=== PATIENT | male | born 1970 | race Caucasian/White ===

== ENCOUNTER 2018-12-31 07:59 | Emergency (ER) | payer BC ==
[2018-12-31 08:37] LABS: ABSOLUTE BASOPHILS # (AUTO) 0.1 10^3/uL (0.0-0.2); ABSOLUTE EOSINOPHILS # (AUTO) 0.1 10^3/uL (0.0-0.6); ABSOLUTE LYMPHOCYTES (AUTO) 1.2 10^3/uL (0.5-4.7); ABSOLUTE MONOCYTES (AUTO) 1.1 10^3/uL (0.1-1.4); ABSOLUTE NEUT (AUTO) 8.8 10^3/uL (1.7-8.2); BASOPHILS % (AUTO) 0.5 % (0-2); EOSINOPHILS % (AUTO) 0.7 % (0-6); HEMATOCRIT 46.1 % (37.9-51.0); LYMPHOCYTES % (AUTO) 10.9 % (13-45); MEAN CORPUSCULAR HEMOGLOBIN 30.4 pg (27.0-33.4); MEAN CORPUSCULAR HGB CONC 34.7 g/dL (32.0-36.0); MEAN CORPUSCULAR VOLUME 88 fl (80-97); MONOCYTES % (AUTO) 9.9 % (3-13); PLATELET COUNT 202 10^3/uL (150-450); RED BLOOD COUNT 5.26 10^6/uL (4.35-5.55); RED CELL DISTRIBUTION WIDTH 13.1 % (11.5-14.0); TOTAL CELLS COUNTED % (AUTO) 100 %; WHITE BLOOD COUNT 11.3 10^3/uL (4.0-10.5)
--- NOTE | 2018-12-31 08:40 | ER Document Report ---
ED GI/ - General Chief Complaint: Abdominal Pain Stated Complaint: ABDOMINAL PAIN Time Seen by Provider: 12/31/18 08:28 Primary Care Provider: DILMA LAWRENCE MD [Primary Care Provider] - Follow up as needed Notes: 48-year-old male who presents today with the onset around 2 days ago of some left mid abdominal "sharp" intermittent pain. No radiation. No aggravating or relieving factors. No nausea, vomiting, dysuria, or diarrhea. Patient states he had a subjective fever yesterday. Patient denies any chest pain, shortness of breath, or leg swelling. TRAVEL OUTSIDE OF THE [place] IN LAST 30 DAYS: No - Related Data Allergies/Adverse Reactions: No Known Allergies Allergy (Verified 12/31/18 08:05) Past Medical History - Social History Smoking Status: Unknown if Ever Smoked Family History: Reviewed & Not Pertinent Review of Systems - Review of Systems Constitutional: denies: Fever EENT: denies: Eye discharge, Nose discharge Cardiovascular: denies: Chest pain, Palpitations Respiratory: denies: Short of breath Gastrointestinal: denies: Vomiting Genitourinary: denies: Dysuria Musculoskeletal: denies: Leg swelling Skin: denies: Rash -: Yes All other systems reviewed and negative Physical Exam - Vital signs Vitals: Temp Pulse Resp BP Pulse Ox 97.3 F 80 18 156/100 H 98 12/31/18 08:04 12/31/18 08:04 12/31/18 08:04 12/31/18 08:04 12/31/18 08:04 Notes: Reviewed vital signs and nursing note as charted by RN. CONSTITUTIONAL: Alert and oriented and responds appropriately to questions. Well-appearing; well-nourished HEAD: Normocephalic; atraumatic EYES: Sclerae non-icteric ENT: Normal nose; no rhinorrhea; moist mucous membranes; pharynx without lesions noted NECK: Supple without meningismus; non-tender; no cervical lymphadenopathy, no masses CARD: Irregularly irregular; no murmurs; symmetric distal pulses RESP: Normal chest excursion without splinting or tachypnea; breath sounds clear and equal bilaterally; no wheezes, no rhonchi, no rales ABD/GI: Normal bowel sounds; non-distended; soft, tender to palpation of the left lower quadrant with no abdominal bruits or palpable masses GI/: Patient has no inguinal masses, no obvious testicular pain or scrotal erythema BACK: The back appears normal and is non-tender to palpation EXT: Normal ROM in all joints; non-tender to palpation; no edema SKIN: No acute lesions noted NEURO: CN 2-12 intact; 5/5 bilateral upper and lower extremity strength with sensation intact to light touch PSYCH: The patient's mood and manner are appropriate. Grooming and personal hygiene are appropriate. Course - Re-evaluation Re-evalutation: 12/31/18 08:38 Given the history and physical examination, I will order basic labs, liver panel, lipase, urine analysis, CT scan of the abdomen and pelvis, and reassess. EKG shows a heart rate of 80, atrial fibrillation, no obvious ST elevation or depression. Patient denies a history of an irregular heartbeat. He denies any medical history and takes no medications. He denies any palpitations, chest pain, lightheadedness, or dizziness. Patient's mother is a surgical nurse here. The general surgeon Dr. Jensen is [place] assessed the patient's abdomen and does not believe that the patient has an acute abdominal emergency at this time. He will allow us to proceed with CT scan which I believe is very reasonable. Given the new onset atrial fibrillation I will also order troponin and lactic acid to evaluate the possibility of myocardial infarction and/or mesenteric ischemia. Patient denies any black or bloody stools. 12/31/18 10:16 White count is elevated. Labs otherwise unremarkable. Some blood in the urine analysis. CT scan with contrast shows no obvious acute pathology. Patient's pain is improved. Vital signs are stable. Possible passed kidney stone? Patient has a normal lactic acid. No obvious urinary tract infection. Repeat EKG has been ordered. 12/31/18 10:42 Repeat EKG shows a heart rate of 80, again atrial fibrillation, no obvious ST elevation or depression. Patient still denies any and all chest pain. 12/31/18 11:11 Given the atrial fibrillation, improvement of the pain, I have called and spoken to the industrial services worker regarding the new onset atrial fibrillation. He states that he would like me to place the patient on 81 mg daily aspirin and he has taken the patient's name and will follow-up in clinic. Given the patient does not have a primary care physician, I have made contact with a local primary care physician in the office she should be able to see the patient tomorrow or Tuesday in the clinic. - Vital Signs Vital signs: Temp Pulse Resp BP Pulse Ox 97.3 F 80 17 129/87 H 97 12/31/18 08:04 12/31/18 08:04 12/31/18 09:01 12/31/18 09:00 12/31/18 09:01 - Laboratory Result Diagrams: 12/31/18 08:25 12/31/18 08:25 Laboratory results interpreted by me: 12/31/18 12/31/18 12/31/18 08:25 08:25 08:25 WBC 11.3 H Lymphocytes % 10.9 L Absolute Neutrophils 8.8 H Chloride 109 H Urine Blood MODERATE H Discharge - Discharge Clinical Impression: Intermittent left lower quadrant abdominal pain, New onset atrial fibrillation Hematuria Qualifiers: Hematuria type: unspecified type Qualified Code(s): R31.9 - Hematuria, unspecified Condition: Good Disposition: HOME, SELF-CARE Additional Instructions: Come back immediately with any return of pain, change in location or quality of pain, fevers or vomiting, inability to urinate, swelling of the legs, chest pain or shortness of breath, or any other acute problems. Please follow-up by walking into Dr. Li's office tomorrow as we have expedited for you. Please also follow-up with Dr. Anton the industrial services worker. He has advised taking 81 mg of aspirin daily until he sees you in the office. Referrals: ALINA LI MD [ACTIVE STAFF] - Follow up as needed CYNDIE GAN MD [ACTIVE STAFF] - Follow up as needed
[2018-12-31 08:53] LABS: ALANINE AMINOTRANSFERASE 27 U/L (21-72); ALKALINE PHOSPHATASE 66 U/L (38-126); ANION GAP 7 (5-19); ASPARTATE AMINO TRANSFERASE 19 U/L (17-59); BILIRUBIN,DIRECT 0.3 mg/dL (0.0-0.4); BILIRUBIN,TOTAL 0.7 mg/dL (0.2-1.3); BLOOD UREA NITROGEN 17 mg/dL (7-20); CALCIUM 8.9 mg/dL (8.4-10.2); CARBON DIOXIDE 26 mmol/L (22-30); CHLORIDE 109 mmol/L (98-107); GLUCOSE 108 mg/dL (75-110); LIPASE 67.2 U/L (23-300); POTASSIUM 4.9 mmol/L (3.6-5.0); SODIUM 141.5 mmol/L (137-145)
[2018-12-31 09:05] LABS: APPEARANCE,URINE CLEAR; BILIRUBIN,URINE NEGATIVE (NEGATIVE); COLOR,URINE YELLOW; GLUCOSE, URINE NEGATIVE (NEGATIVE); KETONES,URINE NEGATIVE (NEGATIVE); LEUKOCYTE ESTERASE,URINE NEGATIVE (NEGATIVE); NITRITE,URINE NEGATIVE (NEGATIVE); PROTEIN,URINE NEGATIVE (NEGATIVE); URINE SPECIFIC GRAVITY 1.026; UROBILINOGEN,URINE NEGATIVE mg/dL (<2.0)
--- NOTE | 2018-12-31 09:31 | RADIOLOGY REPORT (SQ) ---
EXAM DESCRIPTION: CT ABD/PELVIS WITH IV ONLY COMPLETED DATE/TIME: 12/31/2018 9:20 am REASON FOR STUDY: 23; abdominal pain; new onset afib? COMPARISON: None. TECHNIQUE: CT scan of the abdomen and pelvis performed using helical scanning technique with dynamic intravenous contrast injection. No oral contrast. Images reviewed with lung, soft tissue, and bone windows. Reconstructed coronal and sagittal MPR images reviewed. Delayed images for evaluation of the urinary system also acquired. All images stored on PACS. All CT scanners at this facility use dose modulation, iterative reconstruction, and/or weight based d osing when appropriate to reduce radiation dose to as low as reasonably achievable (ALARA). [facility]: Dose Right [facility]: CareDose [facility]: Dose Right [facility]: Teradose 4D [facility]: HipLogic CONTRAST TYPE AND DOSE: Not record RENAL FUNCTION: GFR > 60. RADIATION DOSE: . LIMITATIONS: None. FINDINGS: LOWER CHEST: No significant findings. No nodules or infiltrates. LIVER: Normal size. 1 cm simple cysts. . No dilated ducts. SPLEEN: Normal size. No focal lesions. PANCREAS: No masses. No significant calcifications. No adjacent inflammation or peripancreatic fluid collections. Pancreatic duct not dilated. GALLBLADDER: No identified stones by CT criteria. No inflammatory changes to suggest cholecystitis. ADRENAL GLANDS: No significant masses or asymmetry. RIGHT KIDNEY AND URETER: No solid masses. No significant calcifications. No hydronephrosis or hyd roureter. LEFT KIDNEY AND URETER: No solid masses. No significant calcifications. No hydronephrosis or hydr oureter. AORTA AND VESSELS: No aneurysm. No dissection. Renal arteries, SMA, celiac without stenosis. RETROPERITONEUM: No retroperitoneal adenopathy, hemorrhage or masses. BOWEL AND PERITONEAL CAVITY: No masses or inflammatory changes. No free fluid or peritoneal masses. APPENDIX: Normal. PELVIS: No mass. No free fluid. Normal bladder. ABDOMINAL WALL: No masses. No hernias. BONES: No significant or acute findings. OTHER: No other significant finding. IMPRESSION: NO SIGNIFICANT OR ACUTE FINDING IN THE ABDOMEN OR PELVIS ON CT SCAN WITH IV CONTRAST. TECHNICAL DOCUMENTATION: JOB ID: [id number] Quality ID # [id number]: Final reports with documentation of one or more dose reduction techniques (e.g., Au tomated exposure control, adjustment of the mA and/or kV according to patient size, use of iterative reconstruction technique) 2010 [employer]- All Rights Reserved Reading location - IP/workstation name: [email or web address]
--- NOTE | 2018-12-31 09:31 | EKG REPORT ---
SEVERITY:- ABNORMAL ECG - ATRIAL FIBRILLATION, V-RATE 62-100 : Confirmed by: Tara Gu MD 31-Dec-2018 09:30:51
[2018-12-31] MEDS ORDERED: ASPIRIN 81 MG TABLET, CHEWABLE PO ONE (11:18)
[2018-12-31 11:31] VITALS: BP 146/98
--- NOTE | 2018-12-31 18:40 | EKG REPORT ---
SEVERITY:- ABNORMAL ECG - ATRIAL FIBRILLATION, V-RATE 65-94 : Confirmed by: Tara Gu MD 31-Dec-2018 18:39:56
== END 2018-12-31 11:32 | disposition home or self-care (01) ==
LOC: ER 07:59
DX: R31.9 Hematuria, unspecified (principal); R10.32 Left lower quadrant pain; I48.91 Unspecified atrial fibrillation
CPT/HCPCS: 36415; 74177; 80053; 81001; 83605; 83690; 84484; 85025; 93005; 93010; 99284